=== PATIENT | female | born 1985 | race Caucasian/White ===

== ENCOUNTER 2018-11-30 07:27 | Day surgery (SDC) | payer MEDICAID ==
[2018-11-30] MEDS ORDERED: fentaNYL 100 MCG/2 ML SDV IV ONE (07:28)
[2018-11-30] MEDS ORDERED: Propofol 200 MG/20 ML SDV IV ONE (07:28)
[2018-11-30] MEDS ORDERED: Midazolam 1 MG/ML 2 ML SDV IV ONE (07:28)
[2018-11-30] MEDS ORDERED: Ondansetron 4 MG/2 ML SDV IVPUSH ONE (07:28)
[2018-11-30] MEDS ORDERED: Dexamethasone 4 MG/ML 5 ML MDV IVPUSH ONE (07:28)
[2018-11-30] MEDS ORDERED: HYDROmorphone 2 MG/ML SDV IV ONE (07:28)
[2018-11-30] MEDS ORDERED: Lidocaine 2% 5 ML SDV IV ONE (07:28)
[2018-11-30] MEDS ORDERED: Scopolamine 1.5 MG Transdermal Patch TOP ONE (07:28)
[2018-11-30] MEDS ORDERED: Sodium Chloride 0.9% 10 ML Syringe FLUSH PRN (07:30)
[2018-11-30] MEDS: Lactated Ringers 1,000 ML IV SCH ×2 (08:07→09:59)
[2018-11-30] MEDS ORDERED: ceFAZolin 2 GM in Premix Bag 1 BAG IV ONE (08:30)
[2018-11-30] MEDS ORDERED: EPINEPHrine 1 MG/ML SDV ONE (11:00)
[2018-11-30] MEDS ORDERED: Gentamicin 40 MG/ML 2 ML Vial ONE (11:00)
[2018-11-30] MEDS ORDERED: Acetaminophen/oxyCODONE 325-5 MG Tab PO ONE (11:45)
[2018-11-30 13:08] VITALS: BP 126/85
--- NOTE | 2018-12-11 15:38 | OR ---
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 PROCEDURE: Right knee arthroscopy with partial medial meniscectomy and patellofemoral chondroplasty. ANESTHESIA: General with LMA. FLUID: Lactated Ringer's solution. ESTIMATED BLOOD LOSS: Less than 10 mL. COMPLICATIONS: None. SPECIMENS: None. DISCHARGE DISPOSITION: Stable to PACU. HISTORY AND INDICATIONS FOR THE PROCEDURE: The patient was seen preoperatively in the clinic. She did have a great deal of exercising and noticed that she was having more pain on the medial aspect of her right knee. It was getting to the point where she was having trouble ambulating. She declined an injection. MRI confirmed the above-mentioned diagnosis. Risks and benefits of the procedure were explained to the patient. Informed consent was obtained. DETAILS OF PROCEDURE: The patient was seen preoperatively by myself and Anesthesia staff in the preoperative holding area where the operative site was marked. She was brought to the operative suite by the Anesthesia staff where general anesthesia was administered. A well-padded tourniquet was placed on the right thigh. The left lower extremity was placed into a stirrup. The right lower extremity was placed into a thigh goode with padding all extremities and found to be well padded. The right lower extremity was then prepped and draped in a sterile manner. A time-out was called identifying the correct patient, correct procedure, the correct site, and the antibiotics had been within appropriate period of time. The right lower extremity was exsanguinated. Tourniquet was raised to 250 mmHg. A lateral portal was made and the trocar was inserted with the leg in extension up into the suprapatellar space. The scope was entered and then fluid was advanced into the knee joint. I then visualized that there was some plica on the right side on the lateral side. There was some patellofemoral chondromalacia at the superior aspect of the patella as well as the distal femur on the medial side. The lateral meniscus had no abnormalities. The medial meniscus had a horizontal tear representing approximately two-thirds of the meniscus where the top half of the meniscus had been sheared off. I then used arthroscopic scissors to release that from its base and then removed that fragment. I did remove some infrapatellar fat. The ACL was intact. The PCL was intact. No tibial chondromalacia was noted. I did use a medial portal as well for the scissors. I then used an ablation unit to do a chondroplasty on the patella as well as the distal femur as well as removing the plica on the lateral side. After our goals have been accomplished, I then removed my instruments from the knee and then injected some local anesthetic. The tourniquet was then let down and then closed the portals with [id number] 3- 0 nylon. We then covered with Betadine-soaked Adaptic and some sponges and then an Steven wrap. The patient was then allowed to awaken from general anesthesia and taken to the PACU in stable condition. /[id number] RAMA/CARLEE
== END 2018-11-30 12:56 | disposition home or self-care (01) ==
LOC: FB.SDS 07:27
PROVIDERS: ATTEND Orthopaedic Surgery
DX: S83.241A Other tear of medial meniscus, current injury, right knee, initial encounter (principal); M22.41 Chondromalacia patellae, right knee; F41.9 Anxiety disorder, unspecified; F32.9 Major depressive disorder, single episode, unspecified; Z79.3 Long term (current) use of hormonal contraceptives; Z87.891 Personal history of nicotine dependence
CPT/HCPCS: 01382; 29881; 81025; A9270; J0171; J0690; J1100; J1170; J1580; J2001; J2250; J2405; J2704; J3010; J7120

== ENCOUNTER 2018-12-26 20:37 | Emergency (ER) | payer SELFPAY ==
[2018-12-26] MEDS ORDERED: Ketorolac 30 MG/ML SDV IVPUSH ONE (21:02)
[2018-12-26] MEDS ORDERED: Ondansetron 4 MG/2 ML SDV IVPUSH ONE (21:02)
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
[2018-12-26] MEDS ORDERED: Sodium Chloride 0.9% 1,000 ML IV SCH (21:15)
[2018-12-26 21:49] LABS: ACETAMINOPHEN < 2 ug/mL (<2)
[2018-12-26] MEDS ORDERED: 50% Dextrose in Water 50 ML Syringe IVPUSH ONE (22:29)
[2018-12-26] MEDS ORDERED: Dextrose 5%-0.9% NaCl 1,000 ML IV SCH (22:30)
[2018-12-27] MEDS ORDERED: diphenhydrAMINE 50 MG/ML SDV IVPUSH ONE ×2 (00:02→13:02)
[2018-12-27] MEDS ORDERED: Metoclopramide 10 MG/2 ML SDV IVPUSH ONE (00:03)
[2018-12-27] MEDS ORDERED: Dextrose 5%-0.9% NaCl 1,000 ML IV SCH (00:10)
[2018-12-27] MEDS ORDERED: Ondansetron 4 MG/2 ML SDV IVPUSH ONE (11:40)
[2018-12-27] MEDS ORDERED: Sodium Chloride 0.9% 10 ML Syringe FLUSH PRN (11:40)
[2018-12-27 11:50] VITALS: BP 115/62; PULSE 82
== END 2018-12-27 13:15 | disposition home or self-care (01) ==
LOC: FB.ED 20:37
DX: F10.229 Alcohol dependence with intoxication, unspecified (principal); Y90.0 Blood alcohol level of less than 20 mg/100 ml; F41.9 Anxiety disorder, unspecified; Z90.49 Acquired absence of other specified parts of digestive tract; Z79.899 Other long term (current) drug therapy
CPT/HCPCS: 36415; 80053; 80305; 80320; 80329; 81001; 81025; 82962; 83605; 85025; 96361; 96374; 96375; 96376; 99284; A4216; J1200; J1885; J2405; J2765; J7030; G0480

== ENCOUNTER 2019-02-08 19:35 | Observation (INO) | payer OTHER ==
[2019-02-08] MEDS ORDERED: LORazepam 2 MG/ML SDV IM ONE (19:43)
[2019-02-08] MEDS ORDERED: Sodium Chloride 0.9% 10 ML Syringe FLUSH PRN (19:50)
[2019-02-08] MEDS ORDERED: LORazepam 2 MG/ML SDV IVPUSH ONE ×2 (19:51→19:56)
[2019-02-08] MEDS ORDERED: cloNIDine 0.1 MG Tab PO ONE (19:52)
[2019-02-08 20:21] LABS: ACETAMINOPHEN < 2 ug/mL (<2)
[2019-02-08] MEDS ORDERED: MVI, Adult with Vitamin K 10 ML, Thiamine 100 MG, Folic Acid 1 MG, Magnesium Sulfate 3 ... IV SCH ×5 (21:15)
--- NOTE | 2019-02-08 21:29 | PCM.HP.2 ---
H&P History of Present Illness - General Date of Service: 02/08/19 Admit Problem/Dx: Admission Diagnosis/Problem Admission Diagnosis/Problem Alcohol withdrawal syndrome Source of Information: Patient History Limitations: Reports: No Limitations - History of Present Illness Initial Comments - Free Text/Narative: Patient is a 33 YO WM who presented to the ED because of she is feeling anxious, jittery,shaky and everything is out of control. She has been under a lot of stress for the past 2 months because of custody issues for her 2 daughters. She started drinking more,consuming 350-750ml of Vodka every other day. She denies any street drug use. There is no associated abdominal pain,N/V, or altered LOC. Never had seizure related to alcohol intoxication or withdrawal. 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 Musculoskeletal History: Reports: None Neurological History: Reports: None Psychiatric History: Reports: Addiction, Anxiety, Depression Other Psychiatric History: Alcohol abuse. Endocrine/Metabolic History: Reports: None Hematologic History: Reports: None Immunologic History: Reports: None Oncologic (Cancer) History: Reports: None Dermatologic History: Reports: None - Past Surgical History Head Surgeries/Procedures: Reports: None HEENT Surgical History: Reports: Oral Surgery Cardiovascular Surgical History: Reports: None Respiratory Surgical History: Reports: None GI Surgical History: Reports: Cholecystectomy Female Surgical History: Reports: None Endocrine Surgical History: Reports: None Neurological Surgical History: Reports: None Musculoskeletal Surgical History: Reports: None Oncologic Surgical History: Reports: None Dermatological Surgical History: Reports: None Social & Family History - Family History Family Medical History: Noncontributory - Tobacco Use Smoking Status *Q: Current Every Day Smoker Years of Tobacco use: 15 Packs/Tins Daily: 0.5 Second Hand Smoke Exposure: No - Caffeine Use Caffeine Use: Reports: Coffee, Soda - Recreational Drug Use Recreational Drug Use: No H&P Review of Systems - Review of Systems: Review Of Systems: See Below General: Reports: Other (anxious) HEENT: Reports: No Symptoms Pulmonary: Reports: No Symptoms Cardiovascular: Reports: No Symptoms Gastrointestinal: Reports: No Symptoms Genitourinary: Reports: No Symptoms Musculoskeletal: Reports: No Symptoms Skin: Reports: No Symptoms Psychiatric: Reports: Anxiety, Agitation. Denies: Hallucinations, Suicidal Ideation Neurological: Reports: No Symptoms. Denies: Confusion, Dizziness, Headache Hematologic/Lymphatic: Reports: No Symptoms Immunologic: Reports: No Symptoms Exam - Exam Exam: See Below - Vital Signs Vital Signs: Last Vital Signs Temp 36.7 C 02/08/19 19:35 Pulse 106 H 02/08/19 19:35 Resp 18 02/08/19 19:35 BP 163/95 H 02/08/19 20:15 Pulse Ox 100 02/08/19 19:35 Weight: 72.575 kg - Exam General: Alert, Oriented HEENT: PERRLA, Conjunctiva Clear, Mucosa Moist & Lindy Neck: Supple. No: Lymphadenopathy, JVD, Thyromegaly Lungs: Clear to Auscultation, Normal Respiratory Effort Cardiovascular: Normal S1, Normal S2, Tachycardia GI/Abdominal Exam: Normal Bowel Sounds, Soft, Non-Tender, No Organomegaly, No Distention Back Exam: Normal Inspection, Full Range of Motion Extremities: Normal Inspection, Normal Range of Motion, Non-Tender Skin: Warm Neurological: Cranial Nerves Intact, Reflexes Equal Bilateral, Strength Equal Bilateral Neuro Extensive - Mental Status: Alert, Oriented x3, Memory Intact Neuro Extensive - Motor, Sensory, Reflexes: CN II-XII Intact, Normal Gait, Normal Reflexes. No: Ataxia Psychiatric: Alert, Anxious, Agitated. No: Suicidal Ideation, Homicidal Ideation - Patient Data Lab Results Last 24 hrs: Laboratory Results - last 24 hr 02/08/19 02/08/19 02/08/19 Range/Units 20:00 20:00 20:00 WBC 11.0 (4.5-12.0) X10-3/uL RBC 4.34 (3.23-5.20) x10(6)uL Hgb 13.7 (11.5-15.5) g/dL Hct 40.4 (30.0-51.3) % MCV 93.2 (80-96) fL MCH 31.5 (27.7-33.6) pg MCHC 33.8 (32.2-35.4) g/dL RDW 14.4 (11.5-15.5) % Plt Count 295 (125-369) X10(3)uL MPV 8.2 (7.4-10.4) fL Neut % (Auto) 61.1 (46-82) % Lymph % (Auto) 33.5 (13-37) % [place] % (Auto) 4.0 (4-12) % Eos % (Auto) 0 L (1.0-5.0) % Baso % (Auto) 1 (0-2) % Neut # (Auto) 6.8 (1.6-8.3) # Lymph # (Auto) 3.7 (0.6-5.0) # Redwood # (Auto) 0.4 (0.0-1.3) # Eos # (Auto) 0.0 (0.0-0.8) # Baso # (Auto) 0.1 (0.0-0.2) # Sodium 138 (135-145) mmol/L Potassium 3.9 (3.5-5.3) mmol/L Chloride 99 L D (100-110) mmol/L Carbon Dioxide 27 (21-32) mmol/L BUN 15 (7-18) mg/dL Creatinine 0.8 (0.55-1.02) mg/dL Est Cr Clr Drug Dosing TNP Estimated GFR (MDRD) > 60 (>60) BUN/Creatinine Ratio 18.8 (9-20) Glucose 86 (80-116) mg/dL Calcium 9.0 (8.6-10.2) mg/dL Phosphorus 3.5 (2.6-4.6) mg/dL Magnesium 1.4 L (1.8-2.5) mg/dL Total Bilirubin 0.7 (0.1-1.3) mg/dL AST 32 H D (5-25) IU/L ALT 23 D (12-36) U/L Alkaline Phosphatase 48 L (56-112) IU/L Total Protein 7.6 (6.0-8.0) g/dL Albumin 4.2 (3.5-5.2) g/dL Globulin 3.4 g/dL Albumin/Globulin Ratio 1.2 Amylase 67 (25-115) U/L Lipase 201 (73-393) U/L Salicylates (<2.8) mg/dL Acetaminophen (<2) ug/mL 02/08/19 Range/Units 20:00 WBC (4.5-12.0) X10-3/uL RBC (3.23-5.20) x10(6)uL Hgb (11.5-15.5) g/dL Hct (30.0-51.3) % MCV (80-96) fL MCH (27.7-33.6) pg MCHC (32.2-35.4) g/dL RDW (11.5-15.5) % Plt Count (125-369) X10(3)uL MPV (7.4-10.4) fL Neut % (Auto) (46-82) % Lymph % (Auto) (13-37) % Redwood % (Auto) (4-12) % Eos % (Auto) (1.0-5.0) % Baso % (Auto) (0-2) % Neut # (Auto) (1.6-8.3) # Lymph # (Auto) (0.6-5.0) # Redwood # (Auto) (0.0-1.3) # Eos # (Auto) (0.0-0.8) # Baso # (Auto) (0.0-0.2) # Sodium (135-145) mmol/L Potassium (3.5-5.3) mmol/L Chloride (100-110) mmol/L Carbon Dioxide (21-32) mmol/L BUN (7-18) mg/dL Creatinine (0.55-1.02) mg/dL Est Cr Clr Drug Dosing Estimated GFR (MDRD) (>60) BUN/Creatinine Ratio (9-20) Glucose (80-116) mg/dL Calcium (8.6-10.2) mg/dL Phosphorus (2.6-4.6) mg/dL Magnesium (1.8-2.5) mg/dL Total Bilirubin (0.1-1.3) mg/dL AST (5-25) IU/L ALT (12-36) U/L Alkaline Phosphatase (56-112) IU/L Total Protein (6.0-8.0) g/dL Albumin (3.5-5.2) g/dL Globulin g/dL Albumin/Globulin Ratio Amylase (25-115) U/L Lipase (73-393) U/L Salicylates 2.2 L (<2.8) mg/dL Acetaminophen < 2 L (<2) ug/mL Result Diagrams: 02/08/19 20:00 02/08/19 20:00 *Q Meaningful Use (ADM) - VTE Risk Assess *Q Each Risk Factor Represents 1 Point: None Total Score 1 Point Risk Factors: 0 Each Risk Factor Represents 2 Points: None Total Score 2 Point Risk Factors: 0 Each Risk Factor Represents 3 Points: None Total Score 3 Point Risk Factors: 0 Each Risk Factor Represents 5 Points: None Total Score 5 Point Risk Factors: 0 Venous Thromboembolism Risk Factor Score *Q: 0 - Problem List (1) Alcohol withdrawal SNOMED Code(s): 565812959 ICD Code: F10.239 - ALCOHOL DEPENDENCE WITH WITHDRAWAL, UNSPECIFIED Status : Acute Current Visit: Yes Problem List Initiated/Reviewed/Updated: Yes Orders Last 24hrs: Active Orders 24 hr Category Date Time Status Patient Status [ADT] Routine ADT 02/08/19 20:57 Active CIWAA Assessment [RC] Q4H Care 02/08/19 21:16 Active Cardiac Monitoring [RC] CONTINUOUS Care 02/08/19 21:03 Active Oxygen Therapy [RC] PRN Care 02/08/19 20:57 Active Pulse Oximetry [RC] CONTINUOUS Care 02/08/19 21:03 Active Up With Assistance [RC] ASDIRECTED Care 02/08/19 20:56 Active Vital Signs [RC] Q4H Care 02/08/19 20:57 Active Regular Diet [DIET] Diet 02/08/19 Breakfast Ordered Chest 1V Frontal [CR] Stat Exams 02/08/19 19:59 Taken CBC WITH AUTO DIFF [HEME] Timed Lab 02/09/19 06:00 Ordered COMPREHENSIVE METABOLIC PN,CMP [CHEM] Timed Lab 02/09/19 06:00 Ordered DRUG SCREEN, URINE ALERE [URCHEM] Stat Lab 02/08/19 20:14 Ordered MVI, Adult with Vitamin K [Infuvite Adult] 10 ml Med 02/08/19 21:15 Active Thiamine [Vitamin B-1] 100 mg Folic Acid 1 mg Magnesium Sulfate [Magnesium Sulfate 50%] 3 gm Sodium Chloride 0.9% [Normal Saline] 1,000 ml IV ASDIRECTED Sodium Chloride 0.9% [Saline Flush] Med 02/08/19 19:50 Active 10 ml FLUSH ASDIRECTED PRN Saline Lock Insert [OM.PC] Routine Oth 02/08/19 19:50 Ordered Resuscitation Status Routine Resus Stat 02/08/19 20:56 Ordered Medication Orders Multivitamins/Minerals 10 ml/Thiamine HCl 100 mg/ Folic Acid 1 mg/ Magnesium Sulfate 3 gm/ Sodium Chloride 1,017.2 mls @ 125 mls/hr IV ASDIRECTED BOWEN Sodium Chloride (Saline Flush) 10 ml FLUSH ASDIRECTED PRN PRN Reason: Keep Vein Open
[2019-02-08] MEDS ORDERED: LORazepam 2 MG/ML SDV IVPUSH PRN (22:40)
[2019-02-08] MEDS ORDERED: LORazepam 1 MG Tab PO PRN (23:08)
[2019-02-08] MEDS ORDERED: Acetaminophen 500 MG Tab PO PRN (23:12)
[2019-02-09 08:05] VITALS: BP 103/66; PULSE 68
--- NOTE | 2019-02-09 09:50 | CR ---
INDICATION: Alcohol withdrawal. CHEST: An AP portable upright view of the chest, 02/08/19, was compared with PA view of 01/07/08, and revealed no significant interval change or definite acute process. A mild dextroconvex scoliosis of the lower thoracic spine is suggested. The heart appeared normal in size and shape. No definite lung edema, infiltrate, or effusion was seen. IMPRESSION: No acute process. MTDD
--- NOTE | 2019-02-09 11:01 | PCM.DCSUM1 ---
Discharge Summary - Hospital Course HPI Initial Comments: Patient is a 33 YO WM who presented to the ED because of she is feeling anxious , jittery,shaky and everything is out of control. She has been under a lot of stress for the past 2 months because of custody issues for her 2 daughters. She started drinking more,consuming 350-750ml of Vodka every other day. She denies any street drug use. There is no associated abdominal pain,N/V, or altered LOC. Never had seizure related to alcohol intoxication or withdrawal. - Discharge Data Discharge Date: 02/09/19 Discharge Disposition: Home, Self-Care 01 Condition: Fair - Referral to Home Health Primary Care Physician: Ashkan Taylor MD - Discharge Diagnosis/Problem(s) (1) Alcohol withdrawal SNOMED Code(s): 660462944 ICD Code: F10.239 - ALCOHOL DEPENDENCE WITH WITHDRAWAL, UNSPECIFIED Status : Acute Current Visit: Yes (2) Alcohol abuse SNOMED Code(s): 38658060 ICD Code: F10.10 - ALCOHOL ABUSE, UNCOMPLICATED Status: Acute Current Visit: No (3) Anxiety SNOMED Code(s): 22469121 ICD Code: F41.9 - ANXIETY DISORDER, UNSPECIFIED Status: Acute Current Visit: No Problem Details: Lorazepam prn (4) History of cholecystectomy SNOMED Code(s): 427057138 ICD Code: Z90.49 - ACQUIRED ABSENCE OF OTHER SPECIFIED PARTS OF DIGESTIVE TRACT Status: Acute Current Visit: No Onset Date: 05/03/14 - Patient Summary/Data Hospital Course: Patient received Ativan in ER prior to Urine Drug screen. Also had 1 banana bag started in ER and finished on the floor. CIWAA scores 3 or less all night, patient not interested in treatment. 1 dose of Hydroxyzine 50 mg given prior to discharge, helped a little but not like Ativan. Does not want to be on anything scheduled. Will have her follow up with her PCP on treatment of her anxiety. - Patient Instructions Diet: Regular Diet as Tolerated Activity: As Tolerated Other/Special Instructions: Follow up with Dr Taylor in 1-2 weeks. - Discharge Plan *PRESCRIPTION DRUG MONITORING PROGRAM REVIEWED*: Yes *COPY OF PRESCRIPTION DRUG MONITORING REPORT IN PATIENT SUAD: No Prescriptions/Med Rec: hydrOXYzine pamoate [Vistaril] 50 mg PO Q6H PRN 10 Days #40 cap PRN Reason: Anxiety Multivitamin [Multiple Vitamins] 1 each PO DAILY #30 tablet Home Medications: Home Meds Acetaminophen [Tylenol Extra Strength] 1,000 mg PO Q8H PRN tablet 02/09/19 [Rx] Multivitamin [Multiple Vitamins] 1 each PO DAILY #30 tablet 02/09/19 [Rx] hydrOXYzine pamoate [Vistaril] 50 mg PO Q6H PRN 10 Days #40 cap 02/09/19 [Rx] Patient Handouts: Alcohol Withdrawal Syndrome, Living With Anxiety, Hydroxyzine capsules or tablets Forms: ED Department Discharge Referrals: Ashkan Taylor MD [Primary Care Provider] - - Discharge Summary/Plan Comment DC Time >30 min.: No - General Info Date of Service: 02/09/19 Subjective Update: Patient states she came in more for panic attack, anxiety. Had palpitations, but resolved now. No diarrhea, excessive sweating, or weight loss. Labs reviewed , magnesium replaced in ER. CXR negative per my read, official report pending. TSH normal. CIWAA scores overnight where 3 or less. Did not want any daily medication for her anxiety, has tried Wellbutrin, Effexor, Lexapro in the past without improvement. Is willing to try something as needed but that would not be addicting. - Patient Data Vitals - Most Recent: Last Vital Signs Temp 97.9 F 02/09/19 08:00 Pulse 68 02/09/19 08:00 Resp 19 02/09/19 08:00 BP 103/66 02/09/19 08:00 Pulse Ox 98 02/09/19 08:00 Weight - Most Recent: 159 lb 8 oz I&O - Last 24 hours: Intake & Output 02/08/19 02/09/19 02/09/19 22:59 06:59 14:59 Intake Total 1465 458 Output Total 300 300 Balance 1165 158 Lab Results - Last 24 hrs: Laboratory Results - last 24 hr 02/08/19 02/08/19 02/08/19 Range/Units 20:00 20:00 20:00 WBC 11.0 (4.5-12.0) X10-3/uL RBC 4.34 (3.23-5.20) x10(6)uL Hgb 13.7 (11.5-15.5) g/dL Hct 40.4 (30.0-51.3) % MCV 93.2 (80-96) fL MCH 31.5 (27.7-33.6) pg MCHC 33.8 (32.2-35.4) g/dL RDW 14.4 (11.5-15.5) % Plt Count 295 (125-369) X10(3)uL MPV 8.2 (7.4-10.4) fL Neut % (Auto) 61.1 (46-82) % Lymph % (Auto) 33.5 (13-37) % Gonzales % (Auto) 4.0 (4-12) % Eos % (Auto) 0 L (1.0-5.0) % Baso % (Auto) 1 (0-2) % Neut # (Auto) 6.8 (1.6-8.3) # Lymph # (Auto) 3.7 (0.6-5.0) # [place] # (Auto) 0.4 (0.0-1.3) # Eos # (Auto) 0.0 (0.0-0.8) # Baso # (Auto) 0.1 (0.0-0.2) # Sodium 138 (135-145) mmol/L Potassium 3.9 (3.5-5.3) mmol/L Chloride 99 L D (100-110) mmol/L Carbon Dioxide 27 (21-32) mmol/L BUN 15 (7-18) mg/dL Creatinine 0.8 (0.55-1.02) mg/dL Est Cr Clr Drug Dosing TNP Estimated GFR (MDRD) > 60 (>60) BUN/Creatinine Ratio 18.8 (9-20) Glucose 86 (80-116) mg/dL Calcium 9.0 (8.6-10.2) mg/dL Phosphorus 3.5 (2.6-4.6) mg/dL Magnesium 1.4 L (1.8-2.5) mg/dL Total Bilirubin 0.7 (0.1-1.3) mg/dL AST 32 H D (5-25) IU/L ALT 23 D (12-36) U/L Alkaline Phosphatase 48 L (56-112) IU/L Total Protein 7.6 (6.0-8.0) g/dL Albumin 4.2 (3.5-5.2) g/dL Globulin 3.4 g/dL Albumin/Globulin Ratio 1.2 Amylase 67 (25-115) U/L Lipase 201 (73-393) U/L TSH, Ultra Sensitive (0.36-3.74) IU/mL Salicylates (<2.8) mg/dL Urine Opiates Screen (NEGATIVE) Ur Oxycodone Screen (NEGATIVE) Ur Propoxyphene Screen (NEGATIVE) Acetaminophen (<2) ug/mL Ur Barbituates Screen (NEGATIVE) Ur Tricyclics Screen (NEGATIVE) Ur Phencyclidine Scrn (NEGATIVE) Ur Amphetamine Screen (NEGATIVE) Urine MDMA Screen (NEGATIVE) U Benzodiazepines Scrn (NEGATIVE) U Cocaine Metab Screen (NEGATIVE) U Marijuana (THC) Screen (NEGATIVE) 02/08/19 02/08/19 02/09/19 Range/Units 20:00 23:49 06:00 WBC 8.9 (4.5-12.0) X10-3/uL RBC 3.46 (3.23-5.20) x10(6)uL Hgb 11.0 L (11.5-15.5) g/dL Hct 32.2 (30.0-51.3) % MCV 93.2 (80-96) fL MCH 31.9 (27.7-33.6) pg MCHC 34.2 (32.2-35.4) g/dL RDW 14.5 (11.5-15.5) % Plt Count 220 (125-369) X10(3)uL MPV 7.8 (7.4-10.4) fL Neut % (Auto) 46.6 (46-82) % Lymph % (Auto) 46.5 H (13-37) % Gonzales % (Auto) 4.9 (4-12) % Eos % (Auto) 1 (1.0-5.0) % Baso % (Auto) 1 (0-2) % Neut # (Auto) 4.1 (1.6-8.3) # Lymph # (Auto) 4.2 (0.6-5.0) # Gonzales # (Auto) 0.4 (0.0-1.3) # Eos # (Auto) 0.1 (0.0-0.8) # Baso # (Auto) 0.1 (0.0-0.2) # Sodium (135-145) mmol/L Potassium (3.5-5.3) mmol/L Chloride (100-110) mmol/L Carbon Dioxide (21-32) mmol/L BUN (7-18) mg/dL Creatinine (0.55-1.02) mg/dL Est Cr Clr Drug Dosing Estimated GFR (MDRD) (>60) BUN/Creatinine Ratio (9-20) Glucose (80-116) mg/dL Calcium (8.6-10.2) mg/dL Phosphorus (2.6-4.6) mg/dL Magnesium (1.8-2.5) mg/dL Total Bilirubin (0.1-1.3) mg/dL AST (5-25) IU/L ALT (12-36) U/L Alkaline Phosphatase (56-112) IU/L Total Protein (6.0-8.0) g/dL Albumin (3.5-5.2) g/dL Globulin g/dL Albumin/Globulin Ratio Amylase (25-115) U/L Lipase (73-393) U/L TSH, Ultra Sensitive (0.36-3.74) IU/mL Salicylates 2.2 L (<2.8) mg/dL Urine Opiates Screen Negative (NEGATIVE) Ur Oxycodone Screen Negative (NEGATIVE) Ur Propoxyphene Screen Negative (NEGATIVE) Acetaminophen < 2 L (<2) ug/mL Ur Barbituates Screen Negative (NEGATIVE) Ur Tricyclics Screen Negative (NEGATIVE) Ur Phencyclidine Scrn Negative (NEGATIVE) Ur Amphetamine Screen Negative (NEGATIVE) Urine MDMA Screen Negative (NEGATIVE) U Benzodiazepines Scrn Positive H (NEGATIVE) U Cocaine Metab Screen Negative (NEGATIVE) U Marijuana (THC) Screen Negative (NEGATIVE) 02/09/19 02/09/19 Range/Units 06:00 06:00 WBC (4.5-12.0) X10-3/uL RBC (3.23-5.20) x10(6)uL Hgb (11.5-15.5) g/dL Hct (30.0-51.3) % MCV (80-96) fL MCH (27.7-33.6) pg MCHC (32.2-35.4) g/dL RDW (11.5-15.5) % Plt Count (125-369) X10(3)uL MPV (7.4-10.4) fL Neut % (Auto) (46-82) % Lymph % (Auto) (13-37) % Gonzales % (Auto) (4-12) % Eos % (Auto) (1.0-5.0) % Baso % (Auto) (0-2) % Neut # (Auto) (1.6-8.3) # Lymph # (Auto) (0.6-5.0) # [place] # (Auto) (0.0-1.3) # Eos # (Auto) (0.0-0.8) # Baso # (Auto) (0.0-0.2) # Sodium 138 (135-145) mmol/L Potassium 3.5 (3.5-5.3) mmol/L Chloride 104 D (100-110) mmol/L Carbon Dioxide 25 (21-32) mmol/L BUN 16 (7-18) mg/dL Creatinine 0.7 (0.55-1.02) mg/dL Est Cr Clr Drug Dosing 125.92 Estimated GFR (MDRD) > 60 (>60) BUN/Creatinine Ratio 22.9 H (9-20) Glucose 90 (80-116) mg/dL Calcium 7.7 L (8.6-10.2) mg/dL Phosphorus (2.6-4.6) mg/dL Magnesium (1.8-2.5) mg/dL Total Bilirubin 0.8 (0.1-1.3) mg/dL AST 20 D (5-25) IU/L ALT 16 D (12-36) U/L Alkaline Phosphatase 33 L (56-112) IU/L Total Protein 5.6 L (6.0-8.0) g/dL Albumin 3.0 L (3.5-5.2) g/dL Globulin 2.6 g/dL Albumin/Globulin Ratio 1.2 Amylase (25-115) U/L Lipase (73-393) U/L TSH, Ultra Sensitive 2.27 (0.36-3.74) IU/mL Salicylates (<2.8) mg/dL Urine Opiates Screen (NEGATIVE) Ur Oxycodone Screen (NEGATIVE) Ur Propoxyphene Screen (NEGATIVE) Acetaminophen (<2) ug/mL Ur Barbituates Screen (NEGATIVE) Ur Tricyclics Screen (NEGATIVE) Ur Phencyclidine Scrn (NEGATIVE) Ur Amphetamine Screen (NEGATIVE) Urine MDMA Screen (NEGATIVE) U Benzodiazepines Scrn (NEGATIVE) U Cocaine Metab Screen (NEGATIVE) U Marijuana (THC) Screen (NEGATIVE) Med Orders - Current: Current Medications Acetaminophen (Tylenol Extra Strength) 1,000 mg PO Q8H PRN PRN Reason: Headache Hydroxyzine Pamoate (Vistaril) 50 mg PO Q6H PRN PRN Reason: Anxiety Last Admin: 02/09/19 09:02 Dose: 50 mg Multivitamins/Minerals 10 ml/Thiamine HCl 100 mg/ Folic Acid 1 mg/ Magnesium Sulfate 3 gm/ Sodium Chloride 1,017.2 mls @ 125 mls/hr IV ASDIRECTED BOWEN Last Admin: 02/08/19 23:23 Dose: 125 mls/hr Lorazepam (Ativan) 0 mg IVPUSH Q2H PRN; Protocol PRN Reason: Withdrawal Symptoms Lorazepam (Ativan) 1 mg PO Q2H PRN; Protocol PRN Reason: Withdrawal Symptoms Last Admin: 02/09/19 02:21 Dose: 1 mg Sodium Chloride (Saline Flush) 10 ml FLUSH ASDIRECTED PRN PRN Reason: Keep Vein Open Last Admin: 02/09/19 07:34 Dose: 10 ml Discontinued Medications Clonidine HCl (Catapres) 0.2 mg PO ONETIME ONE Stop: 02/08/19 19:53 Last Admin: 02/08/19 20:15 Dose: 0.2 mg Lorazepam (Ativan) 1 mg IM ONETIME ONE Stop: 02/08/19 19:44 Last Admin: 02/08/19 20:12 Dose: Not Given Lorazepam (Ativan) 1 mg IVPUSH ONETIME ONE Stop: 02/08/19 19:52 Last Admin: 02/08/19 20:12 Dose: Not Given Lorazepam (Ativan) 2 mg IVPUSH ONETIME ONE Stop: 02/08/19 19:57 Last Admin: 02/08/19 20:00 Dose: 2 mg - Exam General: Reports: Alert, Oriented, Cooperative, No Acute Distress Neck: Reports: Trachea Midline, No Thyromegaly Lungs: Reports: Clear to Auscultation, Normal Respiratory Effort Cardiovascular: Reports: Regular Rate, Regular Rhythm, No Murmurs GI/Abdominal Exam: Normal Bowel Sounds, Soft, Non-Tender, No Distention Extremities: No Pedal Edema Skin: Reports: Warm, Dry, Intact Psy/Mental Status: Reports: Alert, Normal Affect. Denies: Anxious (more angry about being admitted)
== END 2019-02-09 10:15 | disposition home or self-care (01) ==
LOC: FB.ED 19:35 → FB.ICU 21:09
PROVIDERS: ADMIT Emergency Medicine; ATTEND Family Medicine
DX: F10.239 Alcohol dependence with withdrawal, unspecified (principal); F41.9 Anxiety disorder, unspecified; F17.200 Nicotine dependence, unspecified, uncomplicated
CPT/HCPCS: 36415; 71045; 80053; 80305; 80329; 82150; 83690; 83735; 84100; 84443; 85025; A9270; J2060; J3411; J3475; J7030; G0480; J3490

== ENCOUNTER 2019-02-11 02:59 | Emergency (ER) | payer OTHER ==
--- NOTE | 2019-02-11 03:22 | EDM.PDOC ---
ED HPI GENERAL MEDICAL PROBLEM - General Chief Complaint: General Time Seen by Provider: 02/11/19 03:10 Source of Information: Reports: Patient History Limitations: Reports: No Limitations - History of Present Illness INITIAL COMMENTS - FREE TEXT/NARRATIVE: 33-year-old female who presents to the emergency department via ambulance reporting that she slept most of the day and sometime around midnight she was trying to lay down and relax and she begin to feel anxious and she reports that the anxiety has been building since that time and she feels that her heart is "beating out of her chest" and that her blood pressure is elevated and she cannot calm down. She states she went over to her mother's house to have her check her blood pressure and it was elevated but she elected to come in by ambulance because she reports that her mother could not bring her in to the emergency department. According to the emergency department nurse, the patient had called in earlier and had reported to the nurse that she had taken Ativan 0.5 mg by mouth. Apparently the patient was in the emergency department on 2018 and was admitted for alcohol withdrawal. She was given Ativan and the following day was discharged by Dr. Santos and the patient reports since that time she has continued to drink about 375-750 mL of vodka daily. She does admit that she was drinking alcohol earlier today but reports that she has not had anything to drink for the past 8-10 hours. She has had no cough. No fevers. She denies any suicidal or homicidal ideation. She denies any pain. She reports that she just feels anxious and the anxiety is quite severe to her. There are no other associated signs or symptoms. There are no other modifying factors. 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: Reports: Other Medication(s) (Took Ativan 0.5 mg by mouth prior to coming in) - Related Data Allergies Allergy/AdvReac Type Severity Reaction Status Date / Time No Known Allergies Allergy Verified 02/08/19 20:53 Home Meds: Home Meds Acetaminophen [Tylenol Extra Strength] 1,000 mg PO Q8H PRN tablet 02/09/19 [Rx] Multivitamin [Multiple Vitamins] 1 each PO DAILY #30 tablet 02/09/19 [Rx] hydrOXYzine pamoate [Vistaril] 50 mg PO Q6H PRN 10 Days #40 cap 02/09/19 [Rx] Past Medical History HEENT History: Reports: Impaired Vision Respiratory History: Reports: None Other Respiratory History: smoker GEOPHYSICAL COMPUTER History: Reports: Dysfunctional Uterine Bleeding Other GEOPHYSICAL COMPUTER History: Patient has two children. Psychiatric History: Reports: Addiction, Anxiety, Depression Other Psychiatric History: Alcohol abuse. - Infectious Disease History Infectious Disease History: Reports: Chicken Pox - Past Surgical History HEENT Surgical History: Reports: Oral Surgery GI Surgical History: Reports: Cholecystectomy Social & Family History - Tobacco Use Smoking Status *Q: Current Every Day Smoker - Caffeine Use Caffeine Use: Reports: Coffee, Soda Other Caffeine Use: 2 cups a day - Alcohol Use Alcohol Use History: Yes Alcohol Use Frequency: Daily - Living Situation & Occupation Social History Comment: Reports that she was by herself. ED ROS GENERAL - Review of Systems Review Of Systems: See Below Constitutional: Reports: No Symptoms HEENT: Reports: No Symptoms Respiratory: Reports: No Symptoms Cardiovascular: Reports: Other (Feels that her heart is beating fast) GI/Abdominal: Reports: No Symptoms : Reports: No Symptoms Musculoskeletal: Reports: No Symptoms Skin: Reports: No Symptoms Neurological: Reports: No Symptoms Psychiatric: Reports: Anxiety Hematologic/Lymphatic: Reports: No Symptoms Immunologic: Reports: No Symptoms ED EXAM, GENERAL - Physical Exam Exam: See Below Exam Limited By: No Limitations General Appearance: Alert, WD/WN, Anxious, Moderate Distress Eye Exam: Bilateral Eye: EOMI, Normal Inspection, PERRL Ears: Normal External Exam, Hearing Grossly Normal Ear Exam: Bilateral Ear: Auricle Normal Nose: Normal Inspection, Normal Mucosa, No Blood Throat/Mouth: Normal Oropharynx, Normal Voice, No Airway Compromise Head: Atraumatic, Normocephalic Neck: Normal Inspection, Supple, Non-Tender, Full Range of Motion Respiratory/Chest: No Respiratory Distress, Lungs Clear, Normal Breath Sounds, No Accessory Muscle Use, Chest Non-Tender Cardiovascular: Normal Peripheral Pulses, Regular Rate, Rhythm, No Murmur Peripheral Pulses: 2+: Radial (L), Radial (R), Dorsalis Pedis (L), Dorsalis Pedis (R) GI/Abdominal: Normal Bowel Sounds, Soft, Non-Tender, No Mass Back Exam: Normal Inspection Extremities: Normal Inspection, Normal Range of Motion, Non-Tender, No Pedal Edema, Normal Capillary Refill Neurological: Alert, Oriented, CN II-XII Intact, Normal Cognition, No Motor/ Sensory Deficits Psychiatric: Anxious Skin Exam: Warm, Dry, Intact, Normal Color, No Rash Course - Vital Signs Last Recorded V/S: Last Vital Signs Temp 36.2 C 02/11/19 03:53 Pulse 78 02/11/19 04:48 Resp 14 02/11/19 04:48 BP 136/89 02/11/19 04:48 Pulse Ox 99 02/11/19 04:48 - Orders/Labs/Meds Labs: Laboratory Tests 02/11/19 02/11/19 02/11/19 Range/Units 03:44 03:44 03:44 WBC 13.2 H (4.5-12.0) X10-3/uL RBC 3.92 (3.23-5.20) x10(6)uL Hgb 12.4 (11.5-15.5) g/dL Hct 36.7 (30.0-51.3) % MCV 93.5 (80-96) fL MCH 31.6 (27.7-33.6) pg MCHC 33.8 (32.2-35.4) g/dL RDW 14.8 (11.5-15.5) % Plt Count 268 (125-369) X10(3)uL MPV 8.1 (7.4-10.4) fL Neut % (Auto) 56.3 (46-82) % Lymph % (Auto) 37.8 H (13-37) % [place] % (Auto) 3.9 L (4-12) % Eos % (Auto) 1 (1.0-5.0) % Baso % (Auto) 1 (0-2) % Neut # (Auto) 7.4 (1.6-8.3) # Lymph # (Auto) 5.0 (0.6-5.0) # [place] # (Auto) 0.5 (0.0-1.3) # Eos # (Auto) 0.2 (0.0-0.8) # Baso # (Auto) 0.1 (0.0-0.2) # Sodium 137 (135-145) mmol/L Potassium 3.3 L (3.5-5.3) mmol/L Chloride 99 L D (100-110) mmol/L Carbon Dioxide 24 (21-32) mmol/L BUN 13 (7-18) mg/dL Creatinine 0.7 (0.55-1.02) mg/dL Est Cr Clr Drug Dosing 125.92 mL/min Estimated GFR (MDRD) > 60 (>60) BUN/Creatinine Ratio 18.6 (9-20) Glucose 92 (80-116) mg/dL Calcium 8.9 (8.6-10.2) mg/dL Magnesium 1.5 L (1.8-2.5) mg/dL Total Bilirubin 0.4 (0.1-1.3) mg/dL AST 18 (5-25) IU/L ALT 17 (12-36) U/L Alkaline Phosphatase 42 L (56-112) IU/L Total Protein 6.8 (6.0-8.0) g/dL Albumin 3.7 (3.5-5.2) g/dL Globulin 3.1 g/dL Albumin/Globulin Ratio 1.2 Ethyl Alcohol 0.03 (<0.03) % Meds: Medications Discontinued Medications Generic Name Dose Route Start Last Admin Trade Name Freq PRN Reason Stop Dose Admin Sodium Chloride 1,000 mls @ 999 mls/hr 02/11/19 03:30 02/11/19 03:37 Normal Saline IV 02/11/19 04:30 999 mls/hr .BOLUS ONE Administration Magnesium Sulfate 2 gm/ Premix 50 mls @ 150 mls/hr 02/11/19 04:05 02/11/19 04 :14 IV 02/11/19 04:24 150 mls/hr ONETIME ONE Administration Lorazepam 1 mg 02/11/19 04:06 02/11/19 04:13 Ativan IM 02/11/19 04:07 1 mg ONETIME ONE Administration Potassium Chloride 40 meq 02/11/19 04:06 02/11/19 04:14 Klor-Con M20 PO 02/11/19 04:07 40 meq ONETIME ONE Administration - Re-Assessments/Exams Free Text/Narrative Re-Assessment/Exam: 02/11/19 04:05: The patient's labs show somewhat decreased potassium and magnesium. I will give her replacement doses of this now. The patient's alcohol is also negative. I will give the patient Ativan 1 mg IM. The plan will be to discharge the patient to home. She reports that she would be able to take a taxi home. 02/11/19 04:50: Patient feels much improved after the medications. Her blood pressure has improved. She is much more calm. She reports that her nephew is coming to take her home. She is stable for discharge. Departure - Departure Time of Disposition: 05:00 Disposition: Home, Self-Care 01 Condition: Good (Improved) Clinical Impression: Panic attack, Alcohol abuse, Hypomagnesemia, Hypokalemia Anxiety disorder Qualifiers: Anxiety disorder type: unspecified anxiety disorder Qualified Code(s): F41.9 - Anxiety disorder, unspecified - Discharge Information Instructions: Panic Attack, [id number], Alcohol Use Disorder, What You Need to Know About Alcohol Abuse and Dependence, Adult Referrals: Ashkan Taylor MD [Primary Care Provider] - Forms: ED Department Discharge Additional Instructions: Your blood tests showed a mildly low magnesium and potassium. We gave you replacements of these minerals. Drink plenty of fluids. Stop drinking alcohol. Get the prescription for hydroxyzine filled and take that as needed for anxiety. Follow-up with Dr. Taylor this coming week.
[2019-02-11] MEDS: Sodium Chloride 0.9% 1,000 ML IV ONE (03:37)
[2019-02-11] MEDS: LORazepam 2 MG/ML SDV IM ONE (04:13)
[2019-02-11] MEDS: Magnesium Sulfate/Water 2 GM in Premix Bag 1 BAG IV ONE (04:14)
[2019-02-11] MEDS: Potassium Chloride 20 MEQ Tab.ER PO ONE (04:14)
[2019-02-11 04:49] VITALS: BP 136/89; PULSE 78
== END 2019-02-11 05:05 | disposition home or self-care (01) ==
LOC: FB.ED 02:59
DX: F41.0 Panic disorder [episodic paroxysmal anxiety] (principal); E87.6 Hypokalemia; E83.42 Hypomagnesemia; F10.10 Alcohol abuse, uncomplicated; Y90.0 Blood alcohol level of less than 20 mg/100 ml; F17.200 Nicotine dependence, unspecified, uncomplicated
CPT/HCPCS: 36415; 80053; 83735; 85025; 96361; 96365; 96372; 99283; 99283-25; A9270-GY; G0480; J2060; J3475; J7030

== ENCOUNTER 2019-02-12 13:18 | Emergency (ER) | payer OTHER, SELFPAY ==
--- NOTE | 2019-02-12 14:05 | EDM.PDOC ---
ED HPI GENERAL MEDICAL PROBLEM - General Stated Complaint: CHEST PAIN Time Seen by Provider: 02/12/19 13:50 Source of Information: Reports: Patient History Limitations: Reports: No Limitations - History of Present Illness INITIAL COMMENTS - FREE TEXT/NARRATIVE: 33-year-old female who reports beginning probably 6-7 PM last night she developed a pressure type pain in her left upper chest that was constant. It was mild and it did not seem to improve or worsen with anything she did. She was able to sleep and this morning at 7:30 AM she reports that the pain was worse and it seemed to radiate into her left axilla and shoulder. She rated the pain as a 7/10 and it has waxed and waned somewhat but is remained present the entire time since 7:30 AM. She also noted that she seemed to feel more and more anxious and like her blood pressure was elevated with some tightness in the back of her head as well. She also felt that her pulse was faster than normal and she feels somewhat short of breath. This occurred while she was at work and she came to the walk-in clinic initially for evaluation. She was brought from the walk-in clinic to the emergency department evaluation secondary to her symptoms. She has had no hemoptysis. She denies any alcohol use for at least the past 72 hours. She has had heavy alcohol use prior to this. I refer the reader to my recent note from 2 days ago. She has had normal urination and she has had normal bowel movements. She denies any possibility of . There are no other associated signs or symptoms. There are no other modifying factors. Onset: Other (6-7 p.m. last night) Duration: Getting Worse (Through the day) Location: Reports: Chest, Upper Extremity, Left Quality: Reports: Dull, Pressure, Throbbing Improves with: Reports: None Worsens with: Reports: None Context: Reports: Other (As above. No history of trauma. 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: Reports: Other (see below) (History of the rest of her Ativan this morning.) - Related Data Allergies Allergy/AdvReac Type Severity Reaction Status Date / Time No Known Allergies Allergy Verified 02/12/19 20:37 Home Meds: Home Meds Acetaminophen [Tylenol Extra Strength] 1,000 mg PO Q8H PRN tablet 02/09/19 [Rx] Multivitamin [Multiple Vitamins] 1 each PO DAILY #30 tablet 02/09/19 [Rx] hydrOXYzine pamoate [Vistaril] 50 mg PO Q6H PRN 10 Days #40 cap 02/09/19 [Rx] LORazepam [Ativan] 1 mg PO ASDIRECTED #10 tablet 02/12/19 [Rx] Past Medical History HEENT History: Reports: Impaired Vision Other Respiratory History: smoker 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 Psychiatric History: Reports: Addiction, Anxiety, Depression Other Psychiatric History: Alcohol abuse. - Infectious Disease History Infectious Disease History: Reports: Chicken Pox - Past Surgical History HEENT Surgical History: Reports: Oral Surgery GI Surgical History: Reports: Cholecystectomy Social & Family History - Family History Cardiac: Reports: CAD (In older relatives) - Tobacco Use Smoking Status *Q: Current Every Day Smoker - Caffeine Use Caffeine Use: Reports: Coffee, Soda Other Caffeine Use: 2 cups a day - Alcohol Use Alcohol Use History: Yes Alcohol Use Frequency: Binges (Last use was 72 hours ago according to the patient.) - Living Situation & Occupation Occupation: Employed ED ROS GENERAL - Review of Systems Review Of Systems: See Below Constitutional: Reports: No Symptoms HEENT: Reports: No Symptoms Respiratory: Reports: No Symptoms Cardiovascular: Reports: Chest Pain Endocrine: Reports: No Symptoms GI/Abdominal: Reports: No Symptoms : Reports: No Symptoms Musculoskeletal: Reports: No Symptoms Skin: Reports: No Symptoms Neurological: Reports: No Symptoms Psychiatric: Reports: Anxiety Hematologic/Lymphatic: Reports: No Symptoms Immunologic: Reports: No Symptoms ED EXAM, GENERAL - Physical Exam Exam: See Below Exam Limited By: No Limitations General Appearance: Alert, WD/WN, Anxious Eye Exam: Bilateral Eye: EOMI, Normal Inspection Ears: Normal External Exam Ear Exam: Bilateral Ear: Auricle Normal Nose: Normal Inspection, Normal Mucosa, No Blood Throat/Mouth: Normal Inspection, Normal Lips, Normal Oropharynx, Normal Voice, No Airway Compromise Head: Atraumatic, Normocephalic Neck: Normal Inspection, Supple Respiratory/Chest: No Respiratory Distress, Lungs Clear, Normal Breath Sounds Cardiovascular: Normal Peripheral Pulses, Regular Rate, Rhythm, No Edema, No JVD , No Murmur Peripheral Pulses: 2+: Radial (L), Radial (R), Dorsalis Pedis (L), Dorsalis Pedis (R) GI/Abdominal: Normal Bowel Sounds, Soft, Non-Tender, No Mass Back Exam: Normal Inspection, Full Range of Motion Extremities: Normal Inspection, Normal Range of Motion, Non-Tender, No Pedal Edema, Normal Capillary Refill Neurological: Alert, Oriented, CN II-XII Intact, Normal Cognition, No Motor/ Sensory Deficits Skin Exam: Warm, Dry, Intact, Normal Color, No Rash Course - Vital Signs Last Recorded V/S: Last Vital Signs Temp 36.1 C 02/12/19 13:18 Pulse 70 02/12/19 15:49 Resp 18 02/12/19 15:49 BP 137/89 02/12/19 15:49 Pulse Ox 99 02/12/19 15:49 - Orders/Labs/Meds Orders: Active Orders 24 hr Category Date Time Status EKG Documentation Completion [RC] ASDIRECTED Care 02/12/19 14:07 Active Chest 2V [CR] Stat Exams 02/12/19 14:05 Taken Peripheral IV Insertion Adult [OM.PC] Routine Oth 02/12/19 14:08 Ordered EKG 12 Lead [EK] Routine Ther 02/12/19 14:05 Ordered Labs: Laboratory Tests 02/12/19 02/12/19 02/12/19 Range/Units 14:21 14:21 14:21 WBC 13.1 H (4.5-12.0) X10-3/uL RBC 4.17 (3.23-5.20) x10(6)uL Hgb 13.4 (11.5-15.5) g/dL Hct 39.2 (30.0-51.3) % MCV 94.1 (80-96) fL MCH 32.1 (27.7-33.6) pg MCHC 34.1 (32.2-35.4) g/dL RDW 14.6 (11.5-15.5) % Plt Count 287 (125-369) X10(3)uL MPV 8.5 (7.4-10.4) fL Neut % (Auto) 73.4 (46-82) % Lymph % (Auto) 21.9 (13-37) % [place] % (Auto) 3.9 L (4-12) % Eos % (Auto) 0 L (1.0-5.0) % Baso % (Auto) 1 (0-2) % Neut # (Auto) 9.6 H (1.6-8.3) # Lymph # (Auto) 2.9 (0.6-5.0) # [place] # (Auto) 0.5 (0.0-1.3) # Eos # (Auto) 0.0 (0.0-0.8) # Baso # (Auto) 0.1 (0.0-0.2) # D-Dimer, Quantitative 0.40 (0.0-0.59) mg/LFEU Sodium 138 (135-145) mmol/L Potassium 4.2 (3.5-5.3) mmol/L Chloride 102 (100-110) mmol/L Carbon Dioxide 24 (21-32) mmol/L BUN 15 (7-18) mg/dL Creatinine 0.8 (0.55-1.02) mg/dL Est Cr Clr Drug Dosing TNP Estimated GFR (MDRD) > 60 (>60) BUN/Creatinine Ratio 18.8 (9-20) Glucose 93 (80-116) mg/dL Calcium 9.3 (8.6-10.2) mg/dL Total Bilirubin 0.6 (0.1-1.3) mg/dL AST 19 (5-25) IU/L ALT 17 (12-36) U/L Alkaline Phosphatase 41 L (56-112) IU/L Troponin I (<0.017-0.056) ng/mL Total Protein 7.5 (6.0-8.0) g/dL Albumin 4.1 (3.5-5.2) g/dL Globulin 3.4 g/dL Albumin/Globulin Ratio 1.2 02/12/19 Range/Units 14:21 WBC (4.5-12.0) X10-3/uL RBC (3.23-5.20) x10(6)uL Hgb (11.5-15.5) g/dL Hct (30.0-51.3) % MCV (80-96) fL MCH (27.7-33.6) pg MCHC (32.2-35.4) g/dL RDW (11.5-15.5) % Plt Count (125-369) X10(3)uL MPV (7.4-10.4) fL Neut % (Auto) (46-82) % Lymph % (Auto) (13-37) % [place] % (Auto) (4-12) % Eos % (Auto) (1.0-5.0) % Baso % (Auto) (0-2) % Neut # (Auto) (1.6-8.3) # Lymph # (Auto) (0.6-5.0) # [place] # (Auto) (0.0-1.3) # Eos # (Auto) (0.0-0.8) # Baso # (Auto) (0.0-0.2) # D-Dimer, Quantitative (0.0-0.59) mg/LFEU Sodium (135-145) mmol/L Potassium (3.5-5.3) mmol/L Chloride (100-110) mmol/L Carbon Dioxide (21-32) mmol/L BUN (7-18) mg/dL Creatinine (0.55-1.02) mg/dL Est Cr Clr Drug Dosing Estimated GFR (MDRD) (>60) BUN/Creatinine Ratio (9-20) Glucose (80-116) mg/dL Calcium (8.6-10.2) mg/dL Total Bilirubin (0.1-1.3) mg/dL AST (5-25) IU/L ALT (12-36) U/L Alkaline Phosphatase (56-112) IU/L Troponin I < 0.017 L (<0.017-0.056) ng/mL Total Protein (6.0-8.0) g/dL Albumin (3.5-5.2) g/dL Globulin g/dL Albumin/Globulin Ratio Meds: Medications Discontinued Medications Generic Name Dose Route Start Last Admin Trade Name Freq PRN Reason Stop Dose Admin Aspirin 324 mg 02/12/19 14:08 02/12/19 15:43 Aspirin PO 02/12/19 14:09 324 mg ONETIME ONE Administration Sodium Chloride 1,000 mls @ 999 mls/hr 02/12/19 14:09 02/12/19 15:40 Normal Saline IV 02/12/19 15:09 999 mls/hr .BOLUS ONE Administration Lorazepam 1 mg 02/12/19 14:09 02/12/19 15:42 Ativan IVPUSH 02/12/19 14:10 1 mg ONETIME ONE Administration Sodium Chloride 10 ml 02/12/19 14:08 Saline Flush FLUSH ASDIRECTED PRN Keep Vein Open - Re-Assessments/Exams Free Text/Narrative Re-Assessment/Exam: 02/12/19 16:30: Patient continues with pain in her chest. She is much more calm and her blood pressure and pulse are decreased. Her labs are all reassuringly normal. Specifically, her troponin was negative and therefore DE has been ruled out. Also her d-dimer was normal and this essentially rules out pulmonary embolus as well. She appears to be having some alcohol withdrawal and anxiety disorder as well. The patient should take ibuprofen and Tylenol for her pain as needed. I have tried to reassure her that the pain does not appear to be related to anything of a serious nature at this point. I will provide her with a prescription of Ativan tapering over the next 5 days. She is to follow-up with her primary provider this week. She is to continue to avoid using alcohol Departure - Departure Time of Disposition: 17:35 Disposition: Home, Self-Care 01 Condition: Good Clinical Impression: Atypical chest pain, Ruled out for myocardial infarction Alcohol withdrawal syndrome Qualifiers: Complication of substance-induced condition: uncomplicated Qualified Code(s): F10.230 - Alcohol dependence with withdrawal, uncomplicated Anxiety disorder Qualifiers: Anxiety disorder type: unspecified anxiety disorder Qualified Code(s): F41.9 - Anxiety disorder, unspecified - Discharge Information Prescriptions: LORazepam [Ativan] 1 mg PO ASDIRECTED #10 tablet Instructions: Alcohol Use Disorder, Nonspecific Chest Pain, [id number], Alcohol Withdrawal Syndrome, [id number] Referrals: Ashkan Taylor MD [ED Physician] - Forms: ED Department Discharge Additional Instructions: Your chest x-ray was normal. Your EKG was normal. Your blood tests were all reassuringly normal. Specifically, you're heart enzyme test was normal and therefore a heart attack was ruled out. You're blood clot screening test was normal and therefore a blood clot in your lungs was ruled out. You appear to be having alcohol withdrawal and some anxiety disorder. You need to follow-up with your primary provider this week. Medication as prescribed (Ativan 1 mg). Drink plenty of fluids. Continue to avoid alcohol use. Back to the emergency department for coughing of blood, unrelenting vomiting, trouble breathing, passing out or any other concerning sign or symptom. - My Orders Last 24 Hours: My Active Orders 02/12/19 14:05 Chest 2V [CR] Stat EKG 12 Lead [EK] Routine 02/12/19 14:07 EKG Documentation Completion [RC] ASDIRECTED 02/12/19 14:08 Peripheral IV Insertion Adult [OM.PC] Routine - Assessment/Plan Last 24 Hours: My Active Orders 02/12/19 14:05 Chest 2V [CR] Stat EKG 12 Lead [EK] Routine 02/12/19 14:07 EKG Documentation Completion [RC] ASDIRECTED 02/12/19 14:08 Peripheral IV Insertion Adult [OM.PC] Routine
[2019-02-12] MEDS ORDERED: Sodium Chloride 0.9% 10 ML Syringe FLUSH PRN (14:08)
[2019-02-12] MEDS ORDERED: Aspirin 81 MG Tab.Chew PO ONE (14:08)
[2019-02-12] MEDS ORDERED: LORazepam 2 MG/ML SDV IVPUSH ONE (14:09)
[2019-02-12] MEDS ORDERED: Sodium Chloride 0.9% 1,000 ML IV ONE (14:09)
[2019-02-12 20:58] VITALS: BP 137/89; PULSE 70
--- NOTE | 2019-02-13 11:01 | CR ---
INDICATION: Chest pain. CHEST: PA and lateral views of the chest, 02/12/19, were compared with 02/08/19 , revealing no significant interval change or definite acute process. MTDD
== END 2019-02-12 18:00 | disposition home or self-care (01) ==
LOC: FB.ED 13:18
DX: R07.89 Other chest pain (principal); F10.230 Alcohol dependence with withdrawal, uncomplicated; F41.9 Anxiety disorder, unspecified; F17.200 Nicotine dependence, unspecified, uncomplicated; F32.9 Major depressive disorder, single episode, unspecified; Z79.899 Other long term (current) drug therapy
CPT/HCPCS: 36415; 71046; 80053; 84484; 85025; 85379; 93005; 93010; 96361; 96374; 99284; 99285; A9270; J2060; J7030

== ENCOUNTER 2021-01-16 21:04 | Emergency (ER) | payer MEDICAID ==
--- NOTE | 2021-01-16 22:09 | EDM.PDOCBH ---
ED HPI GENERAL MEDICAL PROBLEM - General Stated Complaint: SUICIDAL Time Seen by Provider: 01/16/21 22:08 Source of Information: Reports: Patient, Significant Other () History Limitations: Reports: No Limitations - History of Present Illness INITIAL COMMENTS - FREE TEXT/NARRATIVE: 35-year-old female who presents to the emergency department via private vehicle with her because of ongoing alcohol use and he apparently voiced suicidal thoughts to her re. Patient over the past 2 months has been drinking alcohol fairly heavily and particularly heavily over the past 2 months. She reports and the corroborates that she has been drinking 2 pints of vodka a day. According to the , she was quite intoxicated earlier this evening when she called him while he was carrying his dog and she voiced a.m. that she felt like she would rather just be and he came home to find that she was quite intoxicated and was also "not able to be reasoned with" and he was concerned about her safety and brought her to the emergency department for evaluation. Once here, she is awake and alert. She is denying any suicidal ideation. She does report that she stated that earlier but she reports that she has had suicidal thoughts but is not having any suicidal thoughts now and "would never do that to myself or to by family". She tells me that what she really wants to do is to stop drinking. She states that she has tried to stop many times but when she tries to stop, she started to have feelings of withdrawal with shakiness and nausea with intermittent vomiting, palpitations and extreme anxiety. She states that she always stops when this happens and drink some more so that she doesn't have any of these symptoms. She states that if she had something to help her stop the symptoms instead of drinking, she thinks that she would be able to achieve sobriety and hopefully be able to get some help to maintain it. He currently feels much improved than previous. She is denying any pain and would rate her pain as a 0/10 at present. Nausea or vomiting. No chest pain or palpitations now. No abdominal pain. There are no other associated signs or symptoms. There are no other modifying factors. 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: Other (see below) (Nothing.) - Related Data Allergies Allergy/AdvReac Type Severity Reaction Status Date / Time No Known Allergies Allergy Verified 02/12/19 20:37 Home Meds: Home Meds Acetaminophen [Tylenol Extra Strength] 1,000 mg PO Q8H PRN tablet 02/09/19 [Rx] Multivitamin [Multiple Vitamins] 1 each PO DAILY #30 tablet 02/09/19 [Rx] hydrOXYzine pamoate [Vistaril] 50 mg PO Q6H PRN 10 Days #40 cap 02/09/19 [Rx] LORazepam [Ativan] 1 mg PO ASDIRECTED #10 tablet 02/12/19 [Rx] LORazepam [Ativan] 1 mg PO TID PRN #10 tab 01/17/21 [Rx] Ondansetron [Zofran ODT] 4 mg PO Q6H PRN #10 tab.dis 01/17/21 [Rx] Past Medical History HEENT History: Reports: Impaired Vision Other Respiratory History: smoker [employer] History: Reports: Dysfunctional Uterine Bleeding Other [employer] History: Patient has three children. Psychiatric History: Reports: Addiction, Anxiety, Depression Other Psychiatric History: Alcohol abuse. - Infectious Disease History Infectious Disease History: Reports: Chicken Pox - Past Surgical History HEENT Surgical History: Reports: Oral Surgery GI Surgical History: Reports: Cholecystectomy Social & Family History - Family History Cardiac: Reports: CAD (In older relatives) - Tobacco Use Tobacco Use Status *Q: Current Every Day Tobacco User - Caffeine Use Caffeine Use: Reports: Coffee, Soda Other Caffeine Use: 2 cups a day - Living Situation & Occupation Living situation: Reports: Occupation: Employed Social History Comment: She is here with her . ED ROS GENERAL - Review of Systems Review Of Systems: See Below Constitutional: Denies: Fever, Chills HEENT: Denies: Throat Pain, Throat Swelling Respiratory: Denies: Shortness of Breath, Cough Cardiovascular: Reports: Palpitations (Has had palpitations when trying to stop drinking alcohol. None now.). Denies: Chest Pain GI/Abdominal: Denies: Abdominal Pain, Diarrhea : Denies: Dysuria, Hematuria Musculoskeletal: Denies: Neck Pain, Back Pain Skin: Denies: Diaphoresis, Rash Neurological: Denies: Dizziness, Headache Psychiatric: Reports: Anxiety Hematologic/Lymphatic: Denies: Easy Bleeding ED EXAM, BEHAVIORAL HEALTH - Physical Exam Exam: See Below General Appearance: Alert, WD/WN, No Apparent Distress, Anxious Eye Exam: Bilateral Eye: Nystagmus (There is lateral gaze nystagmus at less than 45.), PERRL Ears: Normal External Exam, Hearing Grossly Normal Nose: Normal Inspection, Normal Mucosa, No Blood Throat/Mouth: Normal Voice, No Airway Compromise, Other (There is an odor of alcohol on her breath.) Head: Atraumatic, Normocephalic Neck: Normal Inspection, Supple, Non-Tender, Full Range of Motion Respiratory/Chest: No Respiratory Distress, Lungs Clear, Normal Breath Sounds, No Accessory Muscle Use Cardiovascular: Normal Peripheral Pulses, Regular Rate, Rhythm, No Murmur GI/Abdominal: Normal Bowel Sounds, Soft, Non-Tender, No Mass Back Exam: Normal Inspection, Full Range of Motion Extremities: Normal Inspection Neurological: Alert, CN II-XII Intact, Normal Cognition, No Motor/Sensory Deficits, Oriented x 3 Psychiatric: Alert, Normal Cognition, Suicidal Thoughts (Has had them in the past but has none now.). No: Suicidal Plan, Tangential Thoughts, Auditory Hallucinations Skin Exam: Warm, Dry, Intact, Normal color, No rash #1 Interpretation EKG Date: 01/16/21 Time: 23:52 Rhythm: NSR Rate (Beats/Min): 88 [place]: Normal P-Wave: Present QRS: Normal ST-T: Normal QT: Normal Comparison: NA - No Prior EKG COURSE, BEHAVIORAL HEALTH COMP - Course Vital Signs: Last Vital Signs Temp 36.2 C 01/16/21 21:04 Pulse 89 01/16/21 21:04 Resp 18 01/16/21 21:04 BP 141/95 H 01/16/21 21:04 Pulse Ox 89 L 01/16/21 21:04 Orders, Labs, Meds: Active Orders 24 hr Category Date Time Status EKG 12 Lead [EK] Routine Ther 01/16/21 23:56 Ordered Laboratory Tests 01/16/21 01/16/21 01/16/21 Range/Units 22:25 22:25 22:25 WBC 8.4 (3.0-10.3) x10-3/uL RBC 4.63 (3.60-5.20) x10(6)uL Hgb 14.2 (11.4-15.5) g/dL Hct 42.6 (34.2-48.2) % MCV 92.1 (76.7-100.5) fL MCH 30.8 (23.9-33.9) pg MCHC 33.4 (31.9-34.8) g/dL RDW 12.9 (12.3-16.5) % Plt Count 350 (151-488) x10(3)uL MPV 7.4 (7.1-12.4) fL Neut % (Auto) 41.1 (30.8-76.2) % Lymph % (Auto) 54.4 H (18.4-52.1) % [place] % (Auto) 2.9 L (4.4-15.7) % Eos % (Auto) 0.4 L (0.6-8.1) % Baso % (Auto) 1.2 (0.2-1.5) % Neut # (Auto) 3.5 (1.5-6.3) x10-3/uL Lymph # (Auto) 4.6 H (1.0-4.4) x10-3/uL [place] # (Auto) 0.2 L (0.3-1.0) x10-3/uL Eos # (Auto) 0.0 (0.0-0.8) x10-3/uL Baso # (Auto) 0.1 (0.0-0.1) x10-3/uL Sodium 147 H (135-145) mmol/L Potassium 3.9 (3.5-5.3) mmol/L Chloride 109 D (100-110) mmol/L Carbon Dioxide 22 (21-32) mmol/L BUN 12 (7-18) mg/dL Creatinine 1.1 H (0.55-1.02) mg/dL Est Cr Clr Drug Dosing TNP Estimated GFR (MDRD) 57 L (>60) BUN/Creatinine Ratio 10.9 (9-20) Glucose 81 (80-116) mg/dL Calcium 8.2 L (8.6-10.2) mg/dL Magnesium (1.8-2.5) mg/dL Total Bilirubin 0.2 (0.1-1.3) mg/dL AST 20 (5-25) IU/L ALT 22 D (12-36) U/L Alkaline Phosphatase 45 L (56-112) IU/L Total Protein 7.4 (6.0-8.0) g/dL Albumin 4.1 (3.5-5.2) g/dL Globulin 3.3 g/dL Albumin/Globulin Ratio 1.2 TSH, Ultra Sensitive 1.38 (0.36-3.74) IU/mL Urine HCG, Qual (NEGATIVE) Salicylates 3.0 (<2.8) mg/dL Urine Opiates Screen (NEGATIVE) Ur Buprenorphine Scrn (NEGATIVE) Ur Oxycodone Screen (NEGATIVE) Urine Methadone Screen (NEGATIVE) Ur Propoxyphene Screen (NEGATIVE) Acetaminophen < 2 L (<2) ug/mL Ur Barbiturates Screen (NEGATIVE) Ur Tricyclics Screen (NEGATIVE) Ur Phencyclidine Scrn (NEGATIVE) Ur Amphetamine Screen (NEGATIVE) U Methamphetamines Scrn (NEGATIVE) U Benzodiazepines Scrn (NEGATIVE) U Cocaine Metab Screen (NEGATIVE) U Marijuana (THC) Screen (NEGATIVE) Ethyl Alcohol 0.38 H* (<0.03) % 01/16/21 01/16/21 01/16/21 Range/Units 22:25 23:08 23:08 WBC (3.0-10.3) x10-3/uL RBC (3.60-5.20) x10(6)uL Hgb (11.4-15.5) g/dL Hct (34.2-48.2) % MCV (76.7-100.5) fL MCH (23.9-33.9) pg MCHC (31.9-34.8) g/dL RDW (12.3-16.5) % Plt Count (151-488) x10(3)uL MPV (7.1-12.4) fL Neut % (Auto) (30.8-76.2) % Lymph % (Auto) (18.4-52.1) % [place] % (Auto) (4.4-15.7) % Eos % (Auto) (0.6-8.1) % Baso % (Auto) (0.2-1.5) % Neut # (Auto) (1.5-6.3) x10-3/uL Lymph # (Auto) (1.0-4.4) x10-3/uL [place] # (Auto) (0.3-1.0) x10-3/uL Eos # (Auto) (0.0-0.8) x10-3/uL Baso # (Auto) (0.0-0.1) x10-3/uL Sodium (135-145) mmol/L Potassium (3.5-5.3) mmol/L Chloride (100-110) mmol/L Carbon Dioxide (21-32) mmol/L BUN (7-18) mg/dL Creatinine (0.55-1.02) mg/dL Est Cr Clr Drug Dosing Estimated GFR (MDRD) (>60) BUN/Creatinine Ratio (9-20) Glucose (80-116) mg/dL Calcium (8.6-10.2) mg/dL Magnesium 2.3 (1.8-2.5) mg/dL Total Bilirubin (0.1-1.3) mg/dL AST (5-25) IU/L ALT (12-36) U/L Alkaline Phosphatase (56-112) IU/L Total Protein (6.0-8.0) g/dL Albumin (3.5-5.2) g/dL Globulin g/dL Albumin/Globulin Ratio TSH, Ultra Sensitive (0.36-3.74) IU/mL Urine HCG, Qual Negative (NEGATIVE) Salicylates (<2.8) mg/dL Urine Opiates Screen Negative (NEGATIVE) Ur Buprenorphine Scrn Negative (NEGATIVE) Ur Oxycodone Screen Negative (NEGATIVE) Urine Methadone Screen Negative (NEGATIVE) Ur Propoxyphene Screen Negative (NEGATIVE) Acetaminophen (<2) ug/mL Ur Barbiturates Screen Negative (NEGATIVE) Ur Tricyclics Screen Negative (NEGATIVE) Ur Phencyclidine Scrn Negative (NEGATIVE) Ur Amphetamine Screen Negative (NEGATIVE) U Methamphetamines Scrn Negative (NEGATIVE) U Benzodiazepines Scrn Negative (NEGATIVE) U Cocaine Metab Screen Negative (NEGATIVE) U Marijuana (THC) Screen Negative (NEGATIVE) Ethyl Alcohol (<0.03) % Medications Discontinued Medications Generic Name Dose Route Start Last Admin Trade Name Freq PRN Reason Stop Dose Admin Al Hydroxide/Mg Hydroxide 30 ml 01/16/21 23:15 01/16/21 23:17 Aluminum Hydroxide/Magnesium Hydroxide Susp 30 Ml Cup PO 30 ml .XX BOWEN Administration Re-Assessment/Re-Exam: 01/16/2021 23:15: All of the patient's blood tests are reassuringly normal For the alcohol which is 380 mg/dL. The patient was complaining of palpitations and I will order. Patient continues to deny suicidal ideation at present and does not have a suicide plan. She specifically tells me that she does not want to and he would not be hurting or killing herself. She continues to tell me that she just wants help tried to detox so she can stop drinking alcohol and achieves sobriety. 01/17/2021 00:45: EKG was normal. The patient remains awake and alert. She is continuing to do any suicidal ideation. His main that she wants to stop drinking alcohol and she needs help with detox. The is here with her and is very supportive. He is willing to pb the patient's medications and therefore I will give a prescription of Ativan 1 mg (#10 tablets) that he can give her 1 mg by mouth up to 3 times a day as needed for withdrawal symptoms. Also told to get some multivitamins one a day. I we will also give a prescription for Zofran 4 milligram ODT. The was instructed to only give the Ativan to her if she is not drinking alcohol. And he reports that he has a breathalyzer at home and would be able to check that. I would not expect him to give her any dose until tomorrow after she is no longer intoxicated. And she should only receive the medication if she is having withdrawal type symptoms on an as-needed basis. He feels comfortable with this and seems to understands my instructions. Departure - Departure Time of Disposition: 00:55 Disposition: Home, Self-Care 01 Condition: Good (Stable) Clinical Impression: Alcohol abuse Acute alcohol intoxication Qualifiers: Complication of substance-induced condition: uncomplicated Qualified Code(s): F10.920 - Alcohol use, unspecified with intoxication, uncomplicated - Discharge Information Prescriptions: LORazepam [Ativan] 1 mg PO TID PRN #10 tab PRN Reason: Agitation/withdrawal symptoms Ondansetron [Zofran ODT] 4 mg PO Q6H PRN #10 tab.dis PRN Reason: Nausea/Vomiting Instructions: Alcohol Use Disorder, Alcohol Abuse and Dependence Information, Adult, Alcohol Intoxication, [id number] Referrals: Ashkan Taylor MD [Primary Care Provider] - Forms: ED Department Discharge Additional Instructions: All of your blood tests were reassuringly normal except for your blood alcohol which was 380 mg/dL. Your EKG was normal. Your urine test was normal. You have a significant problem with alcohol. You need to stop drinking alcohol. I have given a prescription of Ativan that your will be able to give you as needed for any withdrawal type symptoms. Also given you a prescription of Zofran for any nausea the you may have. I also recommend that you get multivitamins ([id number]) and take 1 daily. You should follow-up with Dr. Taylor next week for recheck. Back to the emergency department for unrelenting vomiting, severe weakness or any other concerning signs or symptoms. Sepsis Event Note (ED) - Focused Exam Vital Signs: Vital Signs Temp Pulse Resp BP Pulse Ox 01/16/21 21:04 36.2 C 89 18 141/95 H 89 L - My Orders Last 24 Hours: My Active Orders 01/16/21 23:56 EKG 12 Lead [EK] Routine - Assessment/Plan Last 24 Hours: My Active Orders 01/16/21 23:56 EKG 12 Lead [EK] Routine
[2021-01-16 22:34] VITALS: BP 141/95; PULSE 89
[2021-01-16 22:49] LABS: ACETAMINOPHEN < 2 ug/mL (<2)
[2021-01-16] MEDS ORDERED: Aluminum Hydroxide/Magnesium Hydroxide Susp 30 ML Cup PO SCH (23:15)
== END 2021-01-17 01:50 | disposition home or self-care (01) ==
LOC: FB.ED 21:04
DX: F10.120 Alcohol abuse with intoxication, uncomplicated (principal); F17.200 Nicotine dependence, unspecified, uncomplicated; Y90.0 Blood alcohol level of less than 20 mg/100 ml
CPT/HCPCS: 36415; 80053; 80143; 80179; 80307; 81025; 83735; 84443; 85025; 93005; 99285-25; A9270-GY

== ENCOUNTER 2022-03-28 13:26 | Emergency (ER) | payer MEDICAID ==
[2022-03-28] MEDS ORDERED: Sodium Chloride 0.9% 1,000 ML IV ONE (13:41)
[2022-03-28] MEDS ORDERED: Ketorolac 30 MG/ML SDV IVPUSH ONE (13:42)
[2022-03-28] MEDS ORDERED: ClonazePAM 0.5 MG Tab PO ONE (13:48)
[2022-03-28 18:02] LABS: ESTIMATED GFR 86 mL/min (>60)
[2022-03-28] MEDS ORDERED: Lactated Ringers 1,000 ML IV ONE (18:17)
[2022-03-28 20:46] VITALS: BP 122/81; PULSE 98
== END 2022-03-28 20:48 | disposition home or self-care (01) ==
LOC: FB.ED 13:26
DX: F41.9 Anxiety disorder, unspecified (principal); F32.A Depression, unspecified; F10.10 Alcohol abuse, uncomplicated; R11.2 Nausea with vomiting, unspecified
CPT/HCPCS: 36415; 80053; 85025; 96361; 96374; 99284; J1885; J7030; J7120

== ENCOUNTER 2022-10-08 19:38 | Emergency (ER) | payer BC, MEDICAID ==
[2022-10-08 19:52] VITALS: BP 131/73; PULSE 70
[2022-10-08] MEDS ORDERED: Sodium Chloride 0.9% 10 ML Syringe FLUSH PRN (20:54)
[2022-10-08 21:09] LABS: BASOPHILS ABSOLUTE AUTO 0.1 x10-3/uL (0.0-0.1); EOSINOPHILS PERCENT AUTO 0.1 % (0.6-8.1); HEMATOCRIT 42.2 % (34.2-48.2); HEMOGLOBIN 14.2 g/dL (11.4-15.5); LYMPHOCYTES ABSOLUTE AUTO 1.6 x10-3/uL (1.0-4.4); LYMPHOCYTES PERCENT AUTO 23.1 % (18.4-52.1); MEAN CORPUSCULAR HEMOGLOBIN 29.6 pg (23.9-33.9); MEAN CORPUSCULAR HGB CONC 33.6 g/dL (31.9-34.8); MEAN CORPUSCULAR VOLUME 88.2 fL (76.7-100.5); MEAN PLATELET VOLUME 7.5 fL (7.1-12.4); MONOCYTES ABSOLUTE AUTO 0.3 x10-3/uL (0.3-1.0); MONOCYTES PERCENT AUTO 4.2 % (4.4-15.7); NEUTROPHILS ABSOLUTE AUTO 5.1 x10-3/uL (1.5-6.3); NEUTROPHILS PERCENT AUTO 71.6 % (30.8-76.2); PLATELET COUNT,PLT 253 x10(3)uL (151-488); RED BLOOD CELL COUNT 4.78 x10(6)uL (3.60-5.20); RED CELL DISTRIBUTION WIDTH 13.8 % (12.3-16.5); WHITE BLOOD CELL COUNT,WBC 7.1 x10-3/uL (3.0-10.3)
[2022-10-08 21:11] LABS: BLOOD UREA NITROGEN,BUN 18 mg/dL (7-18); BUN/CREATININE RATIO 22.5 (9-20); CALCIUM 7.8 mg/dL (8.6-10.2); CARBON DIOXIDE,CO2 23 mmol/L (21-32); CHLORIDE,CL 103 mmol/L (100-110); CREATININE 0.8 mg/dL (0.55-1.02); EST CRCL DRUG DOSING (CG) 99.01 mL/min; ESTIMATED GFR 98 mL/min (>60); GLUCOSE RANDOM 62 mg/dL (80-116); POTASSIUM,K 3.5 mmol/L (3.5-5.3); SODIUM,NA 143 mmol/L (135-145)
[2022-10-08 21:17] LABS: A/G RATIO 1.1; ALANINE AMINOTRANSFERASE,ALT 36 U/L (12-36); ALBUMIN 3.7 g/dL (3.5-5.2); ALKALINE PHOSPHATASE 76 IU/L (56-112); AMYLASE 43 U/L (25-115); ASPARTATE AMNIOTRANSFERASE,AST 42 IU/L (5-25); BILIRUBIN TOTAL 0.2 mg/dL (0.1-1.3); PROTEIN TOTAL,TP 7.2 g/dL (6.0-8.0)
[2022-10-08] MEDS: Thiamine 200 MG/2 ML MDV IVPUSH ONE (21:29)
[2022-10-08] MEDS: Sodium Chloride 0.9% 1,000 ML IV SCH (21:37)
== END 2022-10-08 22:40 | disposition home or self-care (01) ==
LOC: FB.ED 19:38
DX: F10.229 Alcohol dependence with intoxication, unspecified (principal); Z72.0 Tobacco use; Y90.1 Blood alcohol level of 20-39 mg/100 ml
CPT/HCPCS: 36415; 80053; 80307; 82150; 83690; 85025; 96361; 96374; 99283; 99284-25; J3411; J7030

== ENCOUNTER 2024-06-25 16:22 | Emergency (ER) | payer OTHER ==
[2024-06-25] MEDS ORDERED: Sodium Chloride 0.9% 10 ML Syringe FLUSH PRN (17:29)
[2024-06-25 17:41] LABS: BASOPHILS PERCENT AUTO 0.4 % (0.2-1.5); EOSINOPHILS PERCENT AUTO 0.3 % (0.6-8.1); HEMATOCRIT 41.9 % (34.2-48.2); HEMOGLOBIN 14.4 g/dL (11.4-15.5); LYMPHOCYTES ABSOLUTE AUTO 3.1 x10-3/uL (1.0-4.4); LYMPHOCYTES PERCENT AUTO 43.9 % (18.4-52.1); MEAN CORPUSCULAR HEMOGLOBIN 30.7 pg (23.9-33.9); MEAN CORPUSCULAR HGB CONC 34.4 g/dL (31.9-34.8); MEAN CORPUSCULAR VOLUME 89.1 fL (76.7-100.5); MONOCYTES ABSOLUTE AUTO 0.2 x10-3/uL (0.3-1.0); MONOCYTES PERCENT AUTO 3.5 % (4.4-15.7); NEUTROPHILS ABSOLUTE AUTO 3.6 x10-3/uL (1.5-6.3); NEUTROPHILS PERCENT AUTO 51.9 % (30.8-76.2); PLATELET COUNT,PLT 282 x10(3)uL (151-488); RED CELL DISTRIBUTION WIDTH 13.6 % (12.3-16.5)
[2024-06-25 17:47] LABS: BILIRUBIN,URINE NEGATIVE (NEGATIVE); GLUCOSE,URINE NORMAL (NORMAL); KETONES,URINE NEGATIVE (NEGATIVE); LEUKOCYTE ESTERASE,URINE NEGATIVE (NEGATIVE); NITRITE,URINE NEGATIVE (NEGATIVE); OCCULT BLOOD,URINE NEGATIVE (NEGATIVE); PROTEIN,URINE NEGATIVE (NEGATIVE); UROBILINOGEN,URINE NORMAL (NEGATIVE)
[2024-06-25 17:49] LABS: APPEARANCE,URINE CLEAR (CLEAR); COLOR,URINE YELLOW (YELLOW)
[2024-06-25 17:50] LABS: BLOOD UREA NITROGEN,BUN 14 mg/dL (7-18); CALCIUM 8.8 mg/dL (8.6-10.2); CARBON DIOXIDE,CO2 25 mmol/L (21-32); CHLORIDE,CL 109 mmol/L (100-110); ESTIMATED GFR 75 mL/min (>60); GLUCOSE RANDOM 89 mg/dL (80-116); POTASSIUM,K 3.7 mmol/L (3.5-5.3); SODIUM,NA 147 mmol/L (135-145)
[2024-06-25 17:55] LABS: A/G RATIO 1.1; ALANINE AMINOTRANSFERASE,ALT 21 U/L (12-36); ALBUMIN 4.2 g/dL (3.5-5.2); ALKALINE PHOSPHATASE 58 IU/L (56-112); ASPARTATE AMNIOTRANSFERASE,AST 16 IU/L (5-25); BILIRUBIN TOTAL 0.3 mg/dL (0.1-1.3); MAGNESIUM 2.3 mg/dL (1.8-2.5); PROTEIN TOTAL,TP 7.9 g/dL (6.0-8.0)
[2024-06-25 18:10] LABS: AMPHETAMINES SCREEN, URINE NEGATIVE (NEGATIVE); BARBITURATE SCREEN,URINE NEGATIVE (NEGATIVE); BENZODIAZEPINES SCREEN,URINE NEGATIVE (NEGATIVE); BUPRENORPHINE SCREEN,URINE NEGATIVE (NEGATIVE); METHADONE SCREEN, URINE NEGATIVE (NEGATIVE); METHAMPHETAMINE SCREEN, URINE NEGATIVE (NEGATIVE); OXYCODONE SCREEN,URINE NEGATIVE (NEGATIVE); THC SCREEN,URINE NEGATIVE (NEGATIVE)
[2024-06-25 19:14] VITALS: BP 132/78; PULSE 98
== END 2024-06-25 17:48 | disposition left against medical advice (07) ==
LOC: FB.ED 16:22
DX: R40.4 Transient alteration of awareness (principal); F10.920 Alcohol use, unspecified with intoxication, uncomplicated; Z72.811 Adult antisocial behavior; Z79.899 Other long term (current) drug therapy; Z90.49 Acquired absence of other specified parts of digestive tract
CPT/HCPCS: 80053; 80307; 81003; 81025; 83605; 83735; 85025; 93005; 93010; 99284; 99285

== ENCOUNTER 2024-09-04 07:00 | Emergency (ER) | payer OTHER ==
[2024-09-04] MEDS ORDERED: Sodium Chloride 0.9% 10 ML Syringe FLUSH PRN (07:14)
[2024-09-04] MEDS: Sodium Chloride 0.9% 1,000 ML IV SCH (07:37)
[2024-09-04] MEDS: Thiamine 200 MG/2 ML MDV IVPUSH ONE (07:37)
[2024-09-04] MEDS: Prochlorperazine 10 MG/2 ML SDV IVPUSH ONE (07:37)
[2024-09-04 07:44] LABS: BASOPHILS ABSOLUTE AUTO 0.1 x10-3/uL (0.0-0.1); BASOPHILS PERCENT AUTO 0.7 % (0.2-1.5); EOSINOPHILS PERCENT AUTO 0.2 % (0.6-8.1); HEMATOCRIT 39.4 % (34.2-48.2); HEMOGLOBIN 13.4 g/dL (11.4-15.5); LYMPHOCYTES ABSOLUTE AUTO 3.1 x10-3/uL (1.0-4.4); LYMPHOCYTES PERCENT AUTO 24.8 % (18.4-52.1); MEAN CORPUSCULAR HEMOGLOBIN 29.4 pg (23.9-33.9); MEAN CORPUSCULAR HGB CONC 33.9 g/dL (31.9-34.8); MEAN CORPUSCULAR VOLUME 86.7 fL (76.7-100.5); MEAN PLATELET VOLUME 7.9 fL (7.1-12.4); MONOCYTES ABSOLUTE AUTO 0.6 x10-3/uL (0.3-1.0); MONOCYTES PERCENT AUTO 4.9 % (4.4-15.7); NEUTROPHILS ABSOLUTE AUTO 8.8 x10-3/uL (1.5-6.3); NEUTROPHILS PERCENT AUTO 69.4 % (30.8-76.2); PLATELET COUNT,PLT 296 x10(3)uL (151-488); RED BLOOD CELL COUNT 4.55 x10(6)uL (3.60-5.20); WHITE BLOOD CELL COUNT,WBC 12.6 x10-3/uL (3.0-10.3)
[2024-09-04 07:46] LABS: BLOOD UREA NITROGEN,BUN 17 mg/dL (7-18); BUN/CREATININE RATIO 18.9 (9-20); CALCIUM 8.6 mg/dL (8.6-10.2); CARBON DIOXIDE,CO2 25 mmol/L (21-32); CHLORIDE,CL 104 mmol/L (100-110); CREATININE 0.9 mg/dL (0.55-1.02); ESTIMATED GFR 85 mL/min (>60); GLUCOSE RANDOM 86 mg/dL (80-116); POTASSIUM,K 4.2 mmol/L (3.5-5.3); SODIUM,NA 142 mmol/L (135-145)
[2024-09-04 07:48] LABS: ETHANOL BLOOD MEDICAL 0.07 % (<0.03)
[2024-09-04 07:52] LABS: A/G RATIO 1.2; ALANINE AMINOTRANSFERASE,ALT 33 U/L (12-36); ALKALINE PHOSPHATASE 58 IU/L (56-112); ASPARTATE AMNIOTRANSFERASE,AST 56 IU/L (5-25); BILIRUBIN TOTAL 0.3 mg/dL (0.1-1.3); PROTEIN TOTAL,TP 7.4 g/dL (6.0-8.0)
[2024-09-04 08:47] VITALS: BP 107/63; PULSE 79
== END 2024-09-04 08:48 ==
LOC: FB.ED 07:00
DX: F10.129 Alcohol abuse with intoxication, unspecified (principal); Z79.899 Other long term (current) drug therapy; Z90.49 Acquired absence of other specified parts of digestive tract
CPT/HCPCS: 80053; 80307; 83690; 85025; 96361; 96374; 96375; 99284; J0780; J3411; J7030